=== PATIENT | female | born 1995 | race African-American/Black ===

== ENCOUNTER → 2017-01-09 | Outpatient (CLI) | payer OTHER ==
--- NOTE | ~2017-01-09 | EE ---
Unit #: [id number] #: [id number] Patient: DANIEL MELLO [id number] [address] [address] [id number] O MR#: [id number] NAME: DANIEL MELLO : 1995 SEX: F STUDY DATE/TIME: 01/09/2017 UNIT: CEEG ROOM: STUDY DESCRIPTION: EEG Attending Physician: Mary Cast M.D. Referring Physician: Mary Cast M.D. Primary Care Physician: Oscar Simpson M.D. NEURODIAGNOSTICS REPORT EXAM EEG. DATE OF STUDY 01/09/2017 REASON FOR STUDY Seizures. TECH Shila. TECHNICAL INFORMATION This is a routine EEG performed using the 10-20 system electrode placement. Photic stimulation was performed. Hyperventilation was also performed. Throughout the entire study, the best background rhythm seen is approximately 11 Hz. This rhythm is seen in both posterior head regions symmetrically and does attenuate to eye opening and closure. Hyperventilation was performed which failed to reproduce any abnormal buildup. Photic stimulation was also performed which did not elicit any epileptiform abnormalities. However, a decent photic driving response was seen. There was no sleep recorded during the study. Throughout the entire study, there were no electrographic seizures recorded nor were there any independent epileptiform abnormalities seen. INTERPRETATION This is a normal awake EEG. A normal EEG does not rule out the possibility of a seizure disorder. Clinical correlation is advised. Dictated by... Karl Negro II., M.D. GWS/bd TD: 01/18/2017 09:00 JOB #: [id number] Unit #: [id number] #: [id number] Patient: DANIEL MELLO NEURODIAGNOSTICS REPORT Page 1 of 1 X NEURODIAGNOSTICS REPORT
--- NOTE | ~2017-01-09 | MR17 ---
[facility] A Service of [facility] RADIOLOGY TEXT RESULTS PATIENT: DANIEL MELLO LOCATION: CEEG : [birth year] UNIT #: [id number] AGE: [address]: MARY LOOMIS SEX: F ORDER DR: [id number] [facility] [address] [place], [place] [address] [id number] O MR#: [id number] Acc #: [id number] NAME: DANIEL MELLO : 1995 SEX: F STUDY DATE/TIME: 01/09/2017 10:25 UNIT: CEEG ROOM: STUDY DESCRIPTION: MR Brain WWo Contrast Attending Physician: Mary Loomis M.D. Referring Physician: Mary Loomis M.D. Ordering Physician: Physician Non-Staff Primary Care Physician: Oscar Simpson M.D. MRI CENTER REPORT This report is preliminary unless electronic signature is present. EXAM MRI of the brain with and without contrast dated 01/09/2017 COMPARISON None HISTORY Patient had a seizure in August 2016 and September 2016. Patient was prescribed seizure medications but she did not take it. FINDINGS Multisequence multiplanar imaging of the brain was obtained with and without contrast. 9 mL of MultiHance was administered intravenously. As the patient had dental braces, significant susceptibility artifact from it is noted limiting evaluation of adjacent structures. No acute stroke, space-occupying intracranial mass, mass effect, midline shift or hydrocephalus is seen. Postcontrast sequences do not demonstrate enhancing lesions. Thin coronal T2 sequence through the hippocampal formation does not demonstrate any asymmetrical abnormality. There is expected shape, size, signal of bilateral hippocampi. Thick slices through the sella with the pituitary gland, pineal region and upper cervical spine are within normal limits. Diffusion weighted and gradient sequences are nondiagnostic. IMPRESSION 1. There is significant susceptibility artifact due to her braces limiting evaluation of adjacent structures. 2. After giving allowances to the artifact, the visualized brain was evaluated and it does not demonstrate any significant abnormality. Dictated by... Dottie Billings M.D. [facility] A Service of [facility] RADIOLOGY TEXT RESULTS PATIENT: DANIEL MELLO LOCATION: CE : [birth year] UNIT #: [id number] AGE: [address]: MARY LOOMIS SEX: F ORDER DR: THIS IS AN ELECTRONICALLY VERIFIED REPORT Dottie Billings M.D. at 01/10/2017 1:13 PM WILLIAM/elena TD: 01/10/2017 08:45 JOB #: [id number] MRI CENTER REPORT Page 1 of 1 COPY
== END | disposition home or self-care (01) ==
LOC: CEEG 07:43
DX: G40.909 Epilepsy, unspecified, not intractable, without status epilepticus (principal); R93.0 Abnormal findings on diagnostic imaging of skull and head, not elsewhere classified
CPT/HCPCS: 70553; 95816; A9577